=== PATIENT | female | born 1950 | race Caucasian/White ===

== ENCOUNTER 2022-07-02 12:37 | Emergency (ER) | payer MEDICARE ==
[~2022-07-02] VITALS: Ht 154.9 cm; Wt 52.1 kg
[2022-07-02 14:31] VITALS: BP 147/95
[2022-07-02 15:00] VITALS: BP 136/86
[2022-07-02 15:30] VITALS: BP 132/84
[2022-07-02 16:01] VITALS: BP 154/94
[2022-07-02 16:37] VITALS: BP 154/94
== END 2022-07-02 16:40 | disposition home or self-care (01) ==
LOC: ED 12:37
PROC: 2W3KX1Z Immobilization of Left Finger using Splint (ICD-10-PCS; principal; 2022-07-02)
DX: S62.613A Displaced fracture of proximal phalanx of left middle finger, initial encounter for closed fracture (principal); W19.XXXA Unspecified fall, initial encounter; Y92.009 Unspecified place in unspecified non-institutional (private) residence as the place of occurrence of the external cause